=== PATIENT | male | born 1960 | race Caucasian/White ===

== ENCOUNTER → 2016-09-24 | Outpatient (CLI) | payer OTHER ==
--- NOTE | 2016-09-24 15:52 | DIAGNOSTIC IMAGING REPORT ---
L-SPINE MIN 4 VIEWS ROUTINE CLINICAL HISTORY: M54.9,M54.16 low back pain COMPARISON STUDY: No previous studies for comparison. FINDINGS: There are 5 lumbar type vertebral bodies present. No acute fractures or subluxations are visualized. There are degenerative changes most pronounced at the T12-L1, L4-L5, and L5-S1 levels. There is a nonspecific small sclerotic focus involving the right iliac bone measuring 18 mm. There is an old deformity of the left lateral iliac crest, likely post traumatic or postsurgical. IMPRESSION: Moderate multilevel degenerative change. No acute fractures identified. Electronically signed by: Gabe Mcneill M.D. 09/24/2016 3:51 PM Dictated Date/Time: 09/24/2016 3:50 PM
== END | disposition home or self-care (01) ==
LOC: C.RAD1850 15:36
PROVIDERS: ATTEND Nurse Practitioner Family
DX: M54.16 Radiculopathy, lumbar region (principal)